=== PATIENT | male | born 2000 | race Two or more races ===

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

== ENCOUNTER 2020-10-30 16:15 | Emergency (ER) | payer MEDICAID ==
[~2020-10-30] VITALS: Ht 188 cm; Wt 86.1 kg
--- NOTE | 2020-10-30 16:31 | NUR ---
PATIENT CAME TO TRIAGE ROOM WITH GF. WHEN ASKED CHIEF COMPLAINT STATED "CUTS TO MY LEGS". ASKED HOW HE GOT THEM, WOULDN'T ANSWER. KINDLY EXPLAINED IN ORDER TO ACCUREATELY ASSESS THEM FOR MY ACUITY LEVEL AND TRIAGE ASSESMENT, PATIENT GOT ANGRY, AND RAN OUT. GIRLFRIEND TRIED TO STOP HIM, BUT HE SAID SOME SWEAR WORDS AND LEFT. RIPPED OFF SAT PROBE PRIOR TO ANY VITALS ASSESSED.
== END 2020-10-30 16:34 ==
LOC: ED 16:28
DX: S81.819A Laceration without foreign body, unspecified lower leg, initial encounter (principal); Z53.21 Procedure and treatment not carried out due to patient leaving prior to being seen by health care provider; X58.XXXA Exposure to other specified factors, initial encounter; Y93.89 Activity, other specified; Y92.89 Other specified places as the place of occurrence of the external cause; Y99.8 Other external cause status

== ENCOUNTER 2020-10-30 21:43 | Emergency (ER) | payer MEDICAID ==
[~2020-10-30] VITALS: Ht 188 cm; Wt 86.0 kg
[2020-10-30 21:44] VITALS: BP 145/87
[2020-10-30] MEDS ORDERED: AZITHROMYCIN 500 MG TABLET PO ONE (22:00)
[2020-10-30] MEDS ORDERED: CEFTRIAXONE 1,000 MG IM ONE (22:00)
[2020-10-30] MEDS ORDERED: BICILLIN-LA 2,400,000 UNITS/4 ML IM ONE (22:00)
[2020-10-30 23:26] LABS: MICROSCOPIC INDICATED
== END 2020-10-31 00:02 | disposition home or self-care (01) ==
LOC: ED 22:16
DX: A57 Chancroid (principal); F17.210 Nicotine dependence, cigarettes, uncomplicated
CPT/HCPCS: 36415; 81001; 86592; 86780; 87491; 87591; 87806; 99283; 99406; G0475